=== PATIENT | male | born 1985 | race Caucasian/White ===

== ENCOUNTER 2021-02-03 20:23 | Emergency (ER) | payer OTHER ==
[~2021-02-03] VITALS: Ht 182.9 cm; Wt 127.0 kg
[2021-02-03] MEDS ORDERED: PREG75 PO (21:05)
[2021-02-03 21:56] LABS: BASOPHILS ABSOLUTE AUTO 0.13 K/mm3 (0.00-0.23); BASOPHILS PERCENT AUTO 1 % (0-2); EOSINOPHILS ABSOLUTE AUTO 0.52 K/mm3 (0.00-0.68); EOSINOPHILS PERCENT AUTO 5 % (0-6); Hemoglobin 14.6 g/dL (13.5-17.5); IMMATURE GRAN PERCENT AUTO 1 % (0-1); LYMPHOCYTES ABSOLUTE AUTO 2.28 K/mm3 (0.84-5.20); LYMPHOCYTES PERCENT AUTO 23 % (21-46); MONOCYTES PERCENT AUTO 14 % (4-13); Mean Corpuscular HGB 29.9 pg (26.0-34.0); Mean Corpuscular HGB Conc 33.2 g/dL (31.5-36.5); Mean Corpuscular Volume 90 fL (80-100); Mean Platelet Volume 11.4 fL (9.1-12.4); NEUTROPHILS ABSOLUTE AUTO 5.41 K/mm3 (1.96-9.15); NEUTROPHILS PERCENT AUTO 55 % (41-73); Platelet Count 347 K/mm3 (150-400); RDW Standard Deviation 42.7 fL (35.1-46.3); Red Blood Cell Count 4.88 M/mm3 (4.30-5.90); White Blood Cell Count 9.84 K/mm3 (4.00-11.30)
[2021-02-03 22:30] LABS: Alanine Aminotransfer (ALT/SGP 45 U/L (12-78); Albumin, Blood 3.5 g/dL (3.4-5.0); Albumin/Globulin Ratio 0.7 (0.8-1.8); Alk Phos 69 U/L (50-136); Anion Gap 4 mmol/L (6-16); Aspartate Aminotrans (AST/SGOT 75 U/L (12-37); Bilirubin, Total 0.4 mg/dL (0.1-1.0); Blood Urea Nitrogen 18 mg/dL (8-24); Bun/Creatinine Ratio 16.1 (12.0-20.0); CO2, Blood 28 mmol/L (21-32); Calcium, Blood 9.3 mg/dL (8.5-10.1); Chloride, Blood 106 mmol/L (98-108); Creatinine, Blood 1.12 mg/dL (0.60-1.20); Glomerular Filtration Rate >60 (60-); Glucose, Blood 86 mg/dL (70-99); Potassium, Blood 5.5 mmol/L (3.5-5.5); Sodium, Blood 138 mmol/L (136-145); Total Protein, Blood 8.5 g/dL (6.4-8.2)
[2021-02-04] MEDS ORDERED: AMOX-CLAV 875-1 EAC1 PO (00:13)
== END 2021-02-04 00:27 | disposition home or self-care (01) ==
LOC: ER 20:23
PROVIDERS: Physician Assistant
DX: K52.9 Noninfective gastroenteritis and colitis, unspecified (principal); Z88.8 Allergy status to other drugs, medicaments and biological substances
CPT/HCPCS: 74176; 80053; 85025; 86850; 86900; 86901; 99284-25; A9270

== ENCOUNTER 2022-11-11 19:21 | Emergency (ER) | payer OTHER ==
[~2022-11-11] VITALS: Ht 182.9 cm; Wt 134.3 kg
[~2022-11-11 19:21] MED LIST: AMOX-CLAV 875-1 EAC1 PO; PREG75 PO
[2022-11-11] MEDS ORDERED: HYDCHL25 PO (20:20)
[2022-11-11 23:04] VITALS: BP 160/102
== END 2022-11-11 23:16 | disposition home or self-care (01) ==
LOC: ER 19:21
DX: K42.9 Umbilical hernia without obstruction or gangrene (principal); K43.9 Ventral hernia without obstruction or gangrene; Z87.891 Personal history of nicotine dependence; Z79.899 Other long term (current) drug therapy; I10 Essential (primary) hypertension; G47.30 Sleep apnea, unspecified
CPT/HCPCS: 96372; 99283; A9270; J1885

== ENCOUNTER 2022-11-15 18:14 | Emergency (ER) | payer OTHER ==
[~2022-11-15] VITALS: Ht 182.9 cm; Wt 133.8 kg
[~2022-11-15 18:14] MED LIST changes: +HYDCHL25 PO
[2022-11-15 18:23] VITALS: BP 162/79
[2022-11-15] MEDS ORDERED: Vibramycin100 MG PO (19:50)
== END 2022-11-15 20:05 | disposition home or self-care (01) ==
LOC: ER 18:14
DX: N45.1 Epididymitis (principal); N43.3 Hydrocele, unspecified; I10 Essential (primary) hypertension; Z88.8 Allergy status to other drugs, medicaments and biological substances; Z79.899 Other long term (current) drug therapy; Z87.891 Personal history of nicotine dependence
CPT/HCPCS: 76870; 96372; 99283-25; A9270; J0696

== ENCOUNTER → 2023-02-06 | Outpatient (CLI) | payer OTHER ==
[~2023-02-06] MED LIST changes: +CHOLESTYRAMI PO; +DIPATR PO; +HYDR1TAB94 PO; +Levaquin750 MG PO; +Vibramycin100 MG PO
[2023-02-06 14:36] LABS: Adenovirus F 40/41 Not Detected (NOT DETECT); Astrovirus Not Detected (NOT DETECT); Campylobacter Sp Not Detected (NOT DETECT); Cryptosporidium Not Detected (NOT DETECT); Cyclospora Cayetanensis Not Detected (NOT DETECT); E. Coli O157 Not Detected (NOT DETECT); Entamoeba Histolytica Not Detected (NOT DETECT); Enteroaggregative E. coli-EAEC Not Detected (NOT DETECT); Enteropathogenic E. coli-EPEC Not Detected (NOT DETECT); Enterotoxigenic E. coli-ETEC Not Detected (NOT DETECT); Giardia Lamblia Not Detected (NOT DETECT); Norovirus GI/GII Not Detected (NOT DETECT); Plesiomonas Shigelloides Not Detected (NOT DETECT); Rotavirus A Not Detected (NOT DETECT); Salmonella Sp Not Detected (NOT DETECT); Sapovirus Not Detected (NOT DETECT); Shiga Toxin-prod E. coli-STEC Not Detected (NOT DETECT); Shigella/Enteroin E. coli-EIEC Not Detected (NOT DETECT); Vibrio Cholerae Not Detected (NOT DETECT); Vibrio Sp Not Detected (NOT DETECT); Yersinia Enterocolitica Not Detected (NOT DETECT)
== END | disposition home or self-care (01) ==
LOC: LAB SHORT 10:46 → LAB 10:46
PROVIDERS: Physician Assistant
DX: R19.7 Diarrhea, unspecified (principal)
CPT/HCPCS: 87507

== ENCOUNTER → 2023-02-07 | Outpatient (CLI) | payer OTHER ==
[2023-02-07 12:12] LABS: BASOPHILS PERCENT AUTO 1 % (0-2); EOSINOPHILS PERCENT AUTO 4 % (0-6); Hematocrit 43.8 % (37.0-53.0); IMMATURE GRAN ABSOLUTE AUTO 0.18 K/mm3 (0.00-0.10); IMMATURE GRAN PERCENT AUTO 3 % (0-1); LYMPHOCYTES ABSOLUTE AUTO 1.59 K/mm3 (0.84-5.20); LYMPHOCYTES PERCENT AUTO 23 % (21-46); MONOCYTES ABSOLUTE AUTO 1.06 K/mm3 (0.16-1.47); MONOCYTES PERCENT AUTO 15 % (4-13); Mean Corpuscular HGB 31.3 pg (26.0-34.0); Mean Corpuscular HGB Conc 34.2 g/dL (31.5-36.5); Mean Corpuscular Volume 91 fL (80-100); Mean Platelet Volume 9.6 fL (9.1-12.4); NEUTROPHILS ABSOLUTE AUTO 3.77 K/mm3 (1.96-9.15); NEUTROPHILS PERCENT AUTO 54 % (41-73); Platelet Count 260 K/mm3 (150-400); RDW Coefficient Variation 12.5 % (11.7-14.2); RDW Standard Deviation 41.4 fL (35.1-46.3)
[2023-02-07 12:27] LABS: Albumin, Blood 3.7 g/dL (3.4-5.0); Albumin/Globulin Ratio 0.8 (0.8-1.8); Bilirubin, Total 0.4 mg/dL (0.1-1.0); Bun/Creatinine Ratio 14.2 (12.0-20.0); Calcium, Blood 9.2 mg/dL (8.5-10.1); Creatinine, Blood 1.2 mg/dL (0.60-1.20); Globulin, Blood 4.5 g/dL (2.2-4.0); Total Protein, Blood 8.2 g/dL (6.4-8.2)
[2023-02-07 14:42] LABS: Adenovirus F 40/41 Not Detected (NOT DETECT); Astrovirus Not Detected (NOT DETECT); Campylobacter Sp Not Detected (NOT DETECT); Cryptosporidium Not Detected (NOT DETECT); Cyclospora Cayetanensis Not Detected (NOT DETECT); E. Coli O157 Not Detected (NOT DETECT); Entamoeba Histolytica Not Detected (NOT DETECT); Enteroaggregative E. coli-EAEC Not Detected (NOT DETECT); Enteropathogenic E. coli-EPEC Not Detected (NOT DETECT); Enterotoxigenic E. coli-ETEC Not Detected (NOT DETECT); Giardia Lamblia Not Detected (NOT DETECT); Norovirus GI/GII Not Detected (NOT DETECT); Plesiomonas Shigelloides Not Detected (NOT DETECT); Rotavirus A Not Detected (NOT DETECT); Salmonella Sp Not Detected (NOT DETECT); Sapovirus Not Detected (NOT DETECT); Shiga Toxin-prod E. coli-STEC Not Detected (NOT DETECT); Shigella/Enteroin E. coli-EIEC Not Detected (NOT DETECT); Vibrio Cholerae Not Detected (NOT DETECT); Vibrio Sp Not Detected (NOT DETECT); Yersinia Enterocolitica Not Detected (NOT DETECT)
== END ==
LOC: LAB SHORT 12:08 → LAB 12:08
PROVIDERS: Physician Assistant Medical
DX: R10.84 Generalized abdominal pain (principal); K92.1 Melena; R19.7 Diarrhea, unspecified
CPT/HCPCS: 80053; 83993; 85025; 87507

== ENCOUNTER 2023-02-09 07:57 | Emergency (ER) | payer OTHER ==
[~2023-02-09] VITALS: Ht 182.9 cm; Wt 131.5 kg
[~2023-02-09 07:57] MED LIST changes: -CHOLESTYRAMI PO; -DIPATR PO; -HYDR1TAB94 PO; -Levaquin750 MG PO
[2023-02-09] MEDS ORDERED: DIPATR PO (08:33)
[2023-02-09] MEDS ORDERED: CHOLESTYRAMI PO (08:33)
[2023-02-09 08:52] LABS: BASOPHILS ABSOLUTE AUTO 0.07 K/mm3 (0.00-0.23); BASOPHILS PERCENT AUTO 1 % (0-2); EOSINOPHILS ABSOLUTE AUTO 0.34 K/mm3 (0.00-0.68); EOSINOPHILS PERCENT AUTO 5 % (0-6); Hematocrit 40.7 % (37.0-53.0); Hemoglobin 13.8 g/dL (13.5-17.5); IMMATURE GRAN PERCENT AUTO 2 % (0-1); LYMPHOCYTES ABSOLUTE AUTO 1.57 K/mm3 (0.84-5.20); LYMPHOCYTES PERCENT AUTO 24 % (21-46); MONOCYTES ABSOLUTE AUTO 0.77 K/mm3 (0.16-1.47); MONOCYTES PERCENT AUTO 12 % (4-13); Mean Corpuscular HGB Conc 33.9 g/dL (31.5-36.5); Mean Corpuscular Volume 92 fL (80-100); Mean Platelet Volume 9.6 fL (9.1-12.4); NEUTROPHILS ABSOLUTE AUTO 3.77 K/mm3 (1.96-9.15); NEUTROPHILS PERCENT AUTO 57 % (41-73); Platelet Count 232 K/mm3 (150-400); RDW Coefficient Variation 12.6 % (11.7-14.2); RDW Standard Deviation 41.4 fL (35.1-46.3); Red Blood Cell Count 4.45 M/mm3 (4.30-5.90); White Blood Cell Count 6.62 K/mm3 (4.00-11.30)
[2023-02-09 09:21] LABS: Albumin, Blood 3.3 g/dL (3.4-5.0); Albumin/Globulin Ratio 0.8 (0.8-1.8); Bilirubin, Total 0.5 mg/dL (0.1-1.0); Bun/Creatinine Ratio 11.9 (12.0-20.0); Calcium, Blood 8.5 mg/dL (8.5-10.1); Creatinine, Blood 1.18 mg/dL (0.60-1.20); Globulin, Blood 4.1 g/dL (2.2-4.0); Total Protein, Blood 7.4 g/dL (6.4-8.2)
[2023-02-09] MEDS ORDERED: HYDR1TAB94 PO (13:06)
[2023-02-09] MEDS ORDERED: Levaquin750 MG PO (13:06)
[2023-02-09 13:45] VITALS: BP 139/74
== END 2023-02-09 14:26 | disposition home or self-care (01) ==
LOC: ER 07:57
PROVIDERS: Emergency Medicine
DX: K52.9 Noninfective gastroenteritis and colitis, unspecified (principal); I10 Essential (primary) hypertension; Z88.8 Allergy status to other drugs, medicaments and biological substances; Z87.891 Personal history of nicotine dependence
CPT/HCPCS: 80053; 85025; 86140; 96365; 96366; 96375; 99284-25; J1885; J1956

== ENCOUNTER 2023-02-23 12:12 | Observation (INO) | payer OTHER ==
[~2023-02-23 12:12] MED LIST changes: +CHOLESTYRAMI PO; +DIPATR PO; +HYDR1TAB94 PO; +Levaquin750 MG PO
[2023-02-23 13:06] LABS: BASOPHILS ABSOLUTE AUTO 0.09 K/mm3 (0.00-0.23); BASOPHILS PERCENT AUTO 1 % (0-2); EOSINOPHILS ABSOLUTE AUTO 0.38 K/mm3 (0.00-0.68); EOSINOPHILS PERCENT AUTO 5 % (0-6); Hematocrit 46.7 % (37.0-53.0); Hemoglobin 15.5 g/dL (13.5-17.5); IMMATURE GRAN ABSOLUTE AUTO 0.07 K/mm3 (0.00-0.10); IMMATURE GRAN PERCENT AUTO 1 % (0-1); LYMPHOCYTES ABSOLUTE AUTO 1.66 K/mm3 (0.84-5.20); LYMPHOCYTES PERCENT AUTO 20 % (21-46); MONOCYTES ABSOLUTE AUTO 0.59 K/mm3 (0.16-1.47); MONOCYTES PERCENT AUTO 7 % (4-13); Mean Corpuscular HGB 30.4 pg (26.0-34.0); Mean Corpuscular HGB Conc 33.2 g/dL (31.5-36.5); Mean Corpuscular Volume 92 fL (80-100); Mean Platelet Volume 9.1 fL (9.1-12.4); NEUTROPHILS ABSOLUTE AUTO 5.38 K/mm3 (1.96-9.15); NEUTROPHILS PERCENT AUTO 66 % (41-73); Platelet Count 282 K/mm3 (150-400); RDW Coefficient Variation 12.9 % (11.7-14.2); RDW Standard Deviation 43.8 fL (35.1-46.3); White Blood Cell Count 8.17 K/mm3 (4.00-11.30)
[2023-02-23 13:28] LABS: Albumin, Blood 3.8 g/dL (3.4-5.0); Albumin/Globulin Ratio 0.8 (0.8-1.8); Bilirubin, Total 0.8 mg/dL (0.1-1.0); Bun/Creatinine Ratio 12.4 (12.0-20.0); Calcium, Blood 8.9 mg/dL (8.5-10.1); Creatinine, Blood 1.13 mg/dL (0.60-1.20); Globulin, Blood 4.5 g/dL (2.2-4.0); Total Protein, Blood 8.3 g/dL (6.4-8.2)
[2023-02-23] MEDS ORDERED: Prednisone10 MG PO (17:52)
[2023-02-23] MEDS ORDERED: HYDCHL25 PO (17:55)
--- NOTE | 2023-02-23 18:23 | NUR ---
PATIENT TO ROOM AT 1746, REPORT FROM CAROLYN MCFARLANE, ALERT AND ORIENTED X4, ORIENTED TO ROOM, INDEPEDANT IN ROOM, POSSIBLE SCOPE TOMORROW, UC VS [facility], CALL LIGHT WITH IN REACH, WILL RELAY TO PM RN
[2023-02-23 19:20] VITALS: BP 181/94
[2023-02-23 19:26] VITALS: BP 151/92
[2023-02-24 03:18] VITALS: BP 122/72
--- NOTE | 2023-02-24 04:43 | NUR ---
SHIFT SUMMARY PATIENT IS ALERT AND ORIENTED. PATIENT HAS HAD NO ACUTE EVENTS THIS SHIFT. VITAL SIGNS REVIEWED. PATIENT HAS BEEN IND THIS SHIFT. IV FLUIDS INFUSING ORDERED. PATIENT IS SCHEDULED TO HAVE AND EGD AND COLONOSCOPY IN THE MORNING. PATIENT HAS NOT COMPLAINED OF PAIN, NAUSEA, SOB OR VOMITTING THIS SHIFT. BED IN LOCKED AND LOWEST POSITION. CALL LIGHT IN PLACE. WILL REPORT TO DAY SHIFT RN.
[2023-02-24 05:22] LABS: BASOPHILS ABSOLUTE AUTO 0.07 K/mm3 (0.00-0.23); BASOPHILS PERCENT AUTO 1 % (0-2); EOSINOPHILS ABSOLUTE AUTO 0.53 K/mm3 (0.00-0.68); EOSINOPHILS PERCENT AUTO 7 % (0-6); Hematocrit 40.5 % (37.0-53.0); Hemoglobin 13.3 g/dL (13.5-17.5); IMMATURE GRAN ABSOLUTE AUTO 0.04 K/mm3 (0.00-0.10); IMMATURE GRAN PERCENT AUTO 1 % (0-1); LYMPHOCYTES ABSOLUTE AUTO 1.67 K/mm3 (0.84-5.20); LYMPHOCYTES PERCENT AUTO 22 % (21-46); MONOCYTES ABSOLUTE AUTO 0.65 K/mm3 (0.16-1.47); MONOCYTES PERCENT AUTO 9 % (4-13); Mean Corpuscular HGB 30.5 pg (26.0-34.0); Mean Corpuscular HGB Conc 32.8 g/dL (31.5-36.5); Mean Corpuscular Volume 93 fL (80-100); Mean Platelet Volume 9.6 fL (9.1-12.4); NEUTROPHILS ABSOLUTE AUTO 4.62 K/mm3 (1.96-9.15); NEUTROPHILS PERCENT AUTO 61 % (41-73); Platelet Count 230 K/mm3 (150-400); RDW Coefficient Variation 12.9 % (11.7-14.2); RDW Standard Deviation 43.8 fL (35.1-46.3); Red Blood Cell Count 4.36 M/mm3 (4.30-5.90); White Blood Cell Count 7.58 K/mm3 (4.00-11.30)
[2023-02-24 05:47] LABS: Albumin, Blood 3.1 g/dL (3.4-5.0); Albumin/Globulin Ratio 0.9 (0.8-1.8); Bilirubin, Total 1.2 mg/dL (0.1-1.0); Bun/Creatinine Ratio 13.2 (12.0-20.0); Calcium, Blood 8.1 mg/dL (8.5-10.1); Creatinine, Blood 1.06 mg/dL (0.60-1.20); Globulin, Blood 3.4 g/dL (2.2-4.0); Total Protein, Blood 6.5 g/dL (6.4-8.2)
[2023-02-24 07:29] VITALS: BP 111/58
[2023-02-24 15:59] VITALS: BP 144/92
--- NOTE | 2023-02-24 17:30 | NUR ---
SHIFT SUMMARY PT AOX4, INDEPENDENT IN THE ROOM. GO LYTE ADMINISTERED TODAY, PT HAS BEEN DRINKING IT AT A STEADY PACE. PER PT, NO STOOL PRESENT WITH BOWEL MOVEMENTS. PT A BIT ANXIOUS SO MEDICATION AVAILABLE PER THE EMAR. HE IS TO UNDERGO A COLONOSCOPY THIS EVENING. NO OTHER COMPLAINTS AT THIS TIME. CALL LIGHT WITHIN REACH, BED IN THE LOWEST POSITION. WILL REPORT TO ONCOMING NURSE./
--- NOTE | 2023-02-24 18:58 | NUR ---
note: SPOKE WITH DAY SURGERY NURSE ABOUT PT GOING TO COLONOSCOPY. SHE STATED THE CHARGE NURSE FROM THAT UNIT HAD TOLD THIS NURSE STOP THE PT FROM DRINKING GO LYTE AT 1500. THIS NURSE WAS IN THE ROOM WITH THE PT DURING THAT CALL AND THE CHARGE NURSE DID NOT SHARE THE INFORMATION ABOUT STOPPING THE GO LYTE AT 1500. PT IS AWARE OF THE SITUATION AND AT THIS TIME, IS WILLING TO STAY FOR THE COLONOSCOPY TOMORROW.
[2023-02-24 20:55] VITALS: BP 151/97
[2023-02-25] VITALS (11 sets, daily range): BP systolic 127–198; BP diastolic 72–119
--- NOTE | 2023-02-25 05:44 | NUR ---
SHIFT SUMMARY PATIENT IS ALERT AND ORIENTED. PATIENT HAS HAD NO ACUTE EVENTS THIS SHIFT. VITAL SIGNS REVIEWED. PATIENT IS SCHEDULED TO GO FOR COLONOSCOPY AND EGD THIS AFTERNOON. PATIENT IS SUPPOSED TO BE ON CLEAR LIQUIDS UNTIL 0700 TODAY. AFTER 0700 AND 1400 PATIENT IS SUPPOSED TO BE ON WATER AND ICE CHIPS ONLY. NPO AFTER MIDNIGHT. PATIENT IS IND IN ROOM THIS SHIFT. BED IN LOCKED AND LOWEST POSITION. WILL MONITOR UNTIL SHIFT CHANGE.
[2023-02-25 12:35] LABS: Hematocrit 44.1 % (37.0-53.0); Hemoglobin 14.8 g/dL (13.5-17.5)
--- NOTE | 2023-02-25 17:28 | NUR ---
02/25/23 9587 Martell Matthews MONITOR INTACT WITH CONTINUOUS PULSE OXIMETRY, CONTINUOUS END TITAL CO2, AND INTERMITTENT BLOOD PRESSURE.AND EKG SEE ANESTHESIA RECORD
--- NOTE | 2023-02-25 17:34 | NUR ---
DAYSHIFT SUMMARY Patient alert & oriented x4, independent in the room. This AM patient verbalized frustration with plan of care, and wished to speak to nursing center tutor. Charge nurse spoke to patient, and patient requested patient advocate. Charge nurse spoke to patient advocate, but the patient advocate did not come see patient today. Patient reported feeling upset by this, this RN left voicemail on patient advocates voicemail. Golytely administred this AM, patient had several liquid stools, today. Diarrhea, yellow/green clear. Patient also reported blood in stool, reported this also occured at home. Patient went down for procedure at 1600.
[2023-02-25] MEDS ORDERED: PRED20 PO (18:56)
--- NOTE | 2023-02-25 19:23 | NUR ---
DISCHARGE SUMMARY PATIENT IS BEING DISCHARGE HOME. ARABELLA FLORIAN COMPLETED DISCHARGE. THIS RN WENT OVER DISCHARGE INSTRUCTIONS. IS DRIVING PATIENT HOME.
== END 2023-02-25 19:25 | disposition home or self-care (01) ==
LOC: ER 12:12 → MEDS 12:13
PROVIDERS: Family Medicine; Internal Medicine Gastroenterology; Physician Assistant; ADMIT Internal Medicine
PROC: 0DBN8ZX Excision of Sigmoid Colon, Via Natural or Artificial Opening Endoscopic, Diagnostic (ICD-10-PCS; principal; 2023-02-25 16:30)
PROC: 0DBM8ZX Excision of Descending Colon, Via Natural or Artificial Opening Endoscopic, Diagnostic (ICD-10-PCS; principal; 2023-02-25 16:30)
PROC: 0DBP8ZX Excision of Rectum, Via Natural or Artificial Opening Endoscopic, Diagnostic (ICD-10-PCS; principal; 2023-02-25 16:30)
PROC: 0DBL8ZX Excision of Transverse Colon, Via Natural or Artificial Opening Endoscopic, Diagnostic (ICD-10-PCS; principal; 2023-02-25 16:30)
PROC: 0DB68ZX Excision of Stomach, Via Natural or Artificial Opening Endoscopic, Diagnostic (ICD-10-PCS; principal; 2023-02-25 16:30)
PROC: 0DBH8ZX Excision of Cecum, Via Natural or Artificial Opening Endoscopic, Diagnostic (ICD-10-PCS; principal; 2023-02-25 16:30)
PROC: 0DB98ZX Excision of Duodenum, Via Natural or Artificial Opening Endoscopic, Diagnostic (ICD-10-PCS; principal; 2023-02-25 16:30)
DX: K25.9 Gastric ulcer, unspecified as acute or chronic, without hemorrhage or perforation (principal); K52.9 Noninfective gastroenteritis and colitis, unspecified; I10 Essential (primary) hypertension; G47.30 Sleep apnea, unspecified; G47.33 Obstructive sleep apnea (adult) (pediatric); E66.3 Overweight; Z87.891 Personal history of nicotine dependence; Z88.8 Allergy status to other drugs, medicaments and biological substances
CPT/HCPCS: 36415; 80053; 85014; 85018; 85025; 88305; 88341; 88342; 99284; A9270; G0378; J2001; J2250; J2704; J7030; J7120